=== PATIENT | female | born 1990 | race Caucasian/White ===

== ENCOUNTER 2022-11-10 13:00 | Outpatient (RCR) | payer OTHER, SELFPAY ==
--- NOTE | 2022-10-23 14:55 | PC.ADMIT ---
Patient is a 32 year old female who was referred to [facility] by her prescriber d/t increased sxs of depression and anxiety, mood dysregulation, and OCD behaviors which are interfering with her ability to work. Patient is taking a leave of absence from work to work on her mental health. Patient presented with depressed mood and anxious affect. She is alert and oriented x4. She reports increased work related stresses. Reports passive SI, denied plan or intent. She reports using 1-2 cannabis joints at night to decrease stress and help with sleep. Patient given written and verbal education on cannabis use disorder. Patient presented with depressed mood and anxious affect. She is alert and oriented x4. She is calm and cooperative. Engaging in conversation. Medications reconciled with patient and patient's pharmacy. Patient reports she is taking her medications as prescribed.
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
--- NOTE | 2022-10-26 15:10 | HO.PHP ---
The clients case was reviewed and opened in treatment team.
--- NOTE | 2022-11-07 09:06 | PC.NURSE ---
Ml called and spoke to [facility] staff Kinza Swanson. She will not be in the program today as she is feeling tired. She started Oxcarbazapine yesterday and is feeling tired today. She reports not sleeping well last night as well. Will not be in the program tomorrow as her son is havng a procedure. [facility] staff is aware.
--- NOTE | 2022-11-10 15:49 | HO.PHP ---
A message was left with Sunshine Garcia [facility] re clients successful completion of PHP.
--- NOTE | 2022-11-11 12:34 | P.PNPSP_ITS ---
Subjective Subjective Date of Service: 11/10/22 Reason For Visit: PTSD Medical Problems Affecting Mental Status: No Interim History: Describes mood as good, I am in more control with my feelings . States less episodes of anger, and no intrusive thoughts in past week. No SI, feels safe. Finding current medications helpful, requests refill of trileptal and abilify. Feels ready for discharge from [facility] at this time. Medication Compliance: Yes Side effects from medications: No Attending Groups: Yes Review of Systems Acute medical concerns: No Medical Review of Systems: unchanged Review of Systems Review of Systems Yes all other systems are reviewed and are negative Constitutional: Reports no additional constitutional complaints Mental Status Exam Mental Status Exam Narrative: NAD Patient Appearance: Well Grooomed and Appropriate Patient Orientation: Person, Place, Time and Situation Level of Consciousness: Appropriate and Alert Patient Behavior: Appropriate, Cooperative and Good Eye Contact Mood Description: Appropriate Affect Description: Calm and Appropriate Patient Cognition Impaired: No Ability to Follow Directions: Excellent Speech Pattern: Clear Memory Description: Intact Hallucinations: None Delusions: Not Present Thought Process: Intact Thought Content: positive for Intact Assessment & Plan Assessment & Plan (1) Bipolar II disorder: Status: Acute Code(s): F31.81 - Bipolar II disorder Assessment and Plan: Reports mood as much less labile, more stable. Finding current medications helpful. No SI, no safety concerns. Less impulsive. Has found program and coping skills learned extremely helpful. Feels ready for discharge from program, feels overall much improved. (2) Post-traumatic stress disorder, chronic: Status: Acute Code(s): F43.12 - Post-traumatic stress disorder, chronic Plan 1. Patient appears stable for discharge from [facility] at this time. 2. Patient to follow-up with outpatient providers going forward. Patient educated on: diagnosis, medication risk/benefits and therapeutic strategies Informed Consent: understands Reason for contiued partial hosp. stay Substantial Risk for: stable for discharge Certification I certify that partial hospital treatment is medically necessary due to the symptoms and problems resulting from the patient's mental illness and the failure to treat the patient at the partial hospital level of care would likely result in the patient requiring inpatient psychiatric care which could not be prevented at a less intensive level of care. Total time managing care of this patient today __20__ minutes. Discharge Plan Discharge Attending provider: Eulalio Hinojosa Medications: New aripiprazole [Abilify] 5 mg tablet 5 mg PO DAILY Qty: 30 0RF oxcarbazepine [Trileptal] 150 mg tablet 150 mg PO BID Qty: 60 0RF Discontinued aripiprazole [Abilify] 5 mg Tablet 5 mg PO BEDTIME No Action cetirizine [Zyrtec] 10 mg Tablet 10 mg PO DAILY sertraline 100 mg tablet 1 tab PO DAILY lorazepam 0.5 mg tablet 1 - 2 tab PO DAILY PRN (Reason: anxiety) diltiazem HCl 120 mg capsule,extended release 24hr 1 cap PO DAILY montelukast 10 mg tablet 1 tab PO BEDTIME Stand Alone Forms: Patient Portal Discharge page Patient Education: Bipolar Disorder (DC)
== END 2022-11-10 23:59 | disposition home or self-care (01) ==
LOC: HO.PHPA 13:00
PROVIDERS: Visit Provider Psychiatry & Neurology Psychiatry
DX: F31.81 Bipolar II disorder (principal); F43.10 Post-traumatic stress disorder, unspecified; Z79.899 Other long term (current) drug therapy
CPT/HCPCS: 90791; 90853